=== PATIENT | female | born 1970 | race Caucasian/White ===

== ENCOUNTER 2020-03-23 08:51 | Day surgery (SDC) | payer BC ==
[~2020-03-23] VITALS: Ht 160 cm; Wt 113.5 kg
[2020-03-23 09:04] VITALS: BP 163/88; PULSE 78; TEMP 98.6
[2020-03-23] MEDS ORDERED: GLUCOPHAGE XR750 MG PO (09:04)
[2020-03-23 10:50] VITALS: BP 147/76; PULSE 70
[2020-03-23 11:05] VITALS: BP 146/83; PULSE 62
[2020-03-23 11:20] VITALS: BP 143/79; PULSE 60
[2020-03-23 11:35] VITALS: BP 147/70; PULSE 63
[2020-03-23 11:50] VITALS: BP 158/73; PULSE 59
== END 2020-03-23 12:30 | disposition home or self-care (01) ==
LOC: SDCO 08:51
DX: Z12.11 Encounter for screening for malignant neoplasm of colon (principal); K62.1 Rectal polyp; F32.9 Major depressive disorder, single episode, unspecified; I10 Essential (primary) hypertension; E78.5 Hyperlipidemia, unspecified; G43.909 Migraine, unspecified, not intractable, without status migrainosus; E11.9 Type 2 diabetes mellitus without complications; M17.11 Unilateral primary osteoarthritis, right knee; E55.9 Vitamin D deficiency, unspecified; Z88.6 Allergy status to analgesic agent; Z20.828 Contact with and (suspected) exposure to other viral communicable diseases; E66.01 Morbid (severe) obesity due to excess calories
CPT/HCPCS: J2704

== ENCOUNTER → 2021-02-20 | Outpatient (CLI) | payer BC ==
[~2021-02-20] MED LIST: GLUCOPHAGE XR750 MG PO
== END ==
LOC: MC.RAD 15:17
DX: Z12.31 Encounter for screening mammogram for malignant neoplasm of breast (principal)

== ENCOUNTER → 2023-10-23 | Outpatient (CLI) | payer BC ==
[2006-02-04 19:15] VITALS: TEMP 98.7
== END ==
LOC: MC.RAD 08:45
DX: Z12.31 Encounter for screening mammogram for malignant neoplasm of breast (principal)